=== PATIENT | female | born 1965 | race Caucasian/White ===

== ENCOUNTER → 2019-04-28 17:12 | Outpatient (CLI) | payer OTHER, SELFPAY | PROVIDERS: Visit Provider Nurse Practitioner | DX: N89.8 Other specified noninflammatory disorders of vagina (principal) | CPT/HCPCS: 87210 ==

== ENCOUNTER → 2021-02-28 13:43 | Outpatient (CLI) | payer OTHER, SELFPAY ==
[2021-02-28 14:35] LABS: Add Manual Diff / Slide Review NO; Basophils Absolute Auto 100 /uL (0-100); Basophils Percent Auto 1.2 % (0-2); Eosinophils Absolute Auto 100 /uL (0-450); Eosinophils Percent Auto 1.1 % (2-4); Hematocrit 38.6 % (36-46); Hemoglobin 12.9 g/dL (12.0-16.0); Lymphocytes Absolute Auto 1300 /uL (1100-4500); Lymphocytes Percent Auto 25.9 % (25-40); Mean Corpuscular HGB Conc 33.4 % (30-36); Mean Corpuscular Hemoglobin 29.5 PG (26-34); Mean Corpuscular Volume 88.3 fL (80-100); Monocytes Absolute Auto 400 /uL (0-900); Monocytes Percent Auto 8.2 % (3-14); Neutrophils Absolute Auto 3200 /uL (1500-7000); Neutrophils Percent Auto 63.6 % (50-75); Platelet Count 300 X10^3/uL (150-400); Red Blood Cell Count 4.37 X10^6/uL (4.0-5.2); White Blood Cell Count 5.1 X10^3/uL (4.5-11.0)
[2021-02-28 15:16] LABS: Alanine Aminotransferase 14 IU/L (<35); Albumin Globulin Ratio 1.1 (1.0-2.8); Alkaline Phosphatase 54 U/L (38-126); Aspartate Aminotransferase 28 IU/L (14-36); BUN Creatinine Ratio 19.7 (6-22); Blood Urea Nitrogen 12 mg/dL (7-17); Calcium 9.3 mg/dL (8.4-10.2); Carbon Dioxide 27 mmol/L (22-32); Chloride 105 mmol/L (98-107); Cholesterol 215 mg/dL (140-199); Estimated Glomerular Filt Rate > 60.0 mL/min (>60); Globulin 3.5 g/dL (1.7-4.1); Glucose 91 mg/dL (70-100); HDL Cholesterol 51 mg/dL (40-60); HEMOLYSIS < 15 (0-50); LDL Cholesterol Calculated 154 mg/dL (<100); Potassium 3.8 mmol/L (3.4-5.1); Sodium 138 mmol/L (137-145); Total Protein 7.5 g/dL (6.3-8.2); Triglycerides 50 mg/dL (35-150)
[2021-02-28 15:34] LABS: Free T4, Direct Thyroxine 1.36 ng/dL (0.78-2.19)
[2021-02-28 15:46] LABS: Vitamin D 25 Hydroxy (D3) 31.6 ng/mL (30.0-100.0)
[2021-02-28 15:47] LABS: Thyroid Stimulating Hormone 0.647 uIU/mL (0.47-4.68)
[2021-02-28 15:51] LABS: Ferritin 15 ng/mL (11-264)
[2021-02-28 16:05] LABS: Vitamin B12 458 pg/mL (239-931)
[2021-02-28 17:48] LABS: Cortisol Random 8.07 ug/dL
[2021-03-01 06:18] LABS: EBV Virus IgG Ab > 600.0 U/mL (0.0-17.9); EBV Virus IgM Ab < 36.0 U/mL (0.0-35.9)
[2021-03-01 08:36] LABS: Dehydroepiandrosterone Sulfate 31.9 ug/dL (29.4-220.5)
[2021-03-04 13:05] LABS: 18 kD IgG Band Absent (.); 23 kD IgG Band Absent (.); 28 kD IgG Band Absent (.); 30 kD IgG Band Absent (.); 39 kD IgG Band Absent (.); 41 kD IgG Bands Present (.); 45 kD IgG Band Absent (.); 58 kD IgG Band Absent (.); 66 kD IgG Band Absent (.); IgG P93 AB Absent (.); IgM P23 AB Absent (.); IgM P39 AB Present (.); IgM P41 AB Absent (.); Lyme IgG Line Blot Interpretat Negative (.); Lyme IgM Line Blot Interpretat Negative (.)
[2021-03-08 10:26] LABS: Percent Free Testosterone 3.23 % (0.50-2.80); Testosterone Free 0.48 ng/dL (0.10-0.85)
== END ==
PROVIDERS: Referring Provider Naturopath; Visit Provider Naturopath
DX: R53.83 Other fatigue (principal); N94.3 Premenstrual tension syndrome; K64.5 Perianal venous thrombosis; E67.3 Hypervitaminosis D; G44.209 Tension-type headache, unspecified, not intractable
CPT/HCPCS: 36415; 80053; 80061; 82306; 82533; 82607; 82627; 82728; 83516; 84402; 84403; 84439; 84443; 84481; 85025; 86617; 86644; 86645; 86664; 86665

== ENCOUNTER → 2021-11-30 11:44 | Outpatient (CLI) | payer OTHER, SELFPAY ==
[2021-11-30 13:33] LABS: Add Manual Diff / Slide Review NO; Basophils Absolute Auto 0 /uL (0-100); Basophils Percent Auto 0.5 % (0-2); Eosinophils Absolute Auto 0 /uL (0-450); Eosinophils Percent Auto 0.7 % (2-4); Hematocrit 38.8 % (36-46); Hemoglobin 13.2 g/dL (12.0-16.0); Lymphocytes Absolute Auto 1200 /uL (1100-4500); Lymphocytes Percent Auto 26.5 % (25-40); Mean Corpuscular Hemoglobin 30.5 PG (26-34); Mean Corpuscular Volume 89.7 fL (80-100); Monocytes Absolute Auto 400 /uL (0-900); Monocytes Percent Auto 7.8 % (3-14); Neutrophils Absolute Auto 3000 /uL (1500-7000); Neutrophils Percent Auto 64.5 % (50-75); Platelet Count 267 X10^3/uL (150-400); Red Blood Cell Count 4.33 X10^6/uL (4.0-5.2); Red Cell Distribution Width 12.8 % (11.6-14.8); White Blood Cell Count 4.6 X10^3/uL (4.5-11.0)
[2021-11-30 15:01] LABS: Alanine Aminotransferase 12 IU/L (<35); Albumin 4.2 g/dL (3.5-5.0); Albumin Globulin Ratio 1.4 (1.0-2.8); Alkaline Phosphatase 55 U/L (38-126); Aspartate Aminotransferase 23 IU/L (14-36); BUN Creatinine Ratio 14.1 (6-22); Bilirubin Total 2.9 mg/dL (0.2-1.3); Blood Urea Nitrogen 9 mg/dL (7-17); Calcium 8.8 mg/dL (8.4-10.2); Carbon Dioxide 30 mmol/L (22-32); Chloride 103 mmol/L (98-107); Estimated Glomerular Filt Rate > 60 mL/min (>60); Globulin 3.1 g/dL (1.7-4.1); Glucose 82 mg/dL (70-100); HEMOLYSIS < 15 (0-50); Potassium 3.8 mmol/L (3.4-5.1); Sodium 135 mmol/L (137-145); Total Protein 7.3 g/dL (6.3-8.2)
[2021-11-30 15:25] LABS: Free T3, Triiodothyronine Free 3.75 pg/mL (2.77-5.27); T4 Total Thyroxine 8.63 ug/dL (5.5-11.0)
[2021-11-30 15:30] LABS: Cortisol Random 6.06 ug/dL
[2021-11-30 15:34] LABS: Ferritin 25 ng/mL (11-264)
[2021-11-30 15:37] LABS: Thyroid Stimulating Hormone 0.919 uIU/mL (0.47-4.68)
[2021-11-30 15:50] LABS: Vitamin B12 > 1000 pg/mL (239-931)
[2021-11-30 16:02] LABS: Vitamin D 25 Hydroxy (D3) 76.3 ng/mL (30.0-100.0)
[2021-12-07 20:12] LABS: 18 kD IgG Band Absent (.); 23 kD IgG Band Absent (.); 28 kD IgG Band Absent (.); 30 kD IgG Band Absent (.); 39 kD IgG Band Absent (.); 41 kD IgG Bands Present (.); 45 kD IgG Band Absent (.); 58 kD IgG Band Absent (.); 66 kD IgG Band Absent (.); IgG P93 AB Absent (.); IgM P23 AB Absent (.); IgM P39 AB Absent (.); IgM P41 AB Absent (.); Lyme IgG Line Blot Interpretat Negative (.); Lyme IgM Line Blot Interpretat Negative (.)
[2021-12-20 13:40] LABS: Epstein-Barr Anti-Diffuse <9.0
== END ==
PROVIDERS: PCP Naturopath; Referring Provider Naturopath; Visit Provider Naturopath
DX: R53.83 Other fatigue (principal); E53.8 Deficiency of other specified B group vitamins; E61.1 Iron deficiency; B27.90 Infectious mononucleosis, unspecified without complication
CPT/HCPCS: 36415; 80053; 82306; 82533; 82607; 82627; 82728; 84403; 84436; 84443; 84481; 85025; 86003; 86617; 86645; 86663

== ENCOUNTER → 2022-05-24 15:20 | Outpatient (CLI) | payer OTHER, SELFPAY ==
--- NOTE | 2022-05-24 15:22 | DI.US.S_ITS ---
PROCEDURE: US PELVIC COMPLETE INDICATIONS: ABNORMAL BLEEDING TECHNIQUE: Real-time scanning was performed of the pelvic organs, with image documentation. Additional endovaginal scanning was necessary due to incomplete visualization of the adnexal and endometrial structures by transabdominal scanning. COMPARISON: None. FINDINGS: There is suspected bicornuate uterus. The lateral transverse with the uterus is approximately 9.8 centimeters. The length of the uterus when measured to the right fundal horn measures 11 centimeters and when measured to the left fundal horn measures 8.4 centimeters. The uterus measures approximately 5.5 centimeters in AP dimension. Abnormally thickened endometrium measuring up to 13 millimeters in double-layer thickness, and heterogeneous appearance containing numerous calcifications. Right midline intramuscular uterine fibroid measuring 4.5 x 6.2 x 5.2 centimeters. Additional left anterior intramuscular uterine fibroid measuring 2.0 x 1.6 x 1.9 centimeters. Right ovary measures 4.0 x 4.6 x 6.4 centimeters. Cyst in the right ovary measures 6.0 x 4.3 x 3.8 centimeters and contains a small daughter cyst measuring up to 2.3 centimeters. Left ovary unremarkable measuring 1.3 x 1.5 x 3.2 centimeters. Both ovaries demonstrate normal arterial and venous Doppler flow. IMPRESSION: Thickened and heterogenous endometrium containing calcifications. Findings are suspicious for endometrial carcinoma, although this is not definitive. Endometrial biopsy recommended. 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 The size of the uterus and fibroids along with the suspected bicornuate morphology of the uterus greatly limits sonographic utility. Consider MRI for further evaluation. No findings of ovarian torsion. Approximate 6 centimeter right ovarian/adnexal cyst without features of complexity. We strive to produce accurate, complete, and clear reports of imaging services. To assist us in improving patient care, this report was composed using standard report templates and voice recognition software. Therefore, it may contain abnormal punctuation, insertions and/or omissions. Occasional wrong-word or sound-alike substitutions may occur. Though we review the report and make efforts to correct it, we do recommend that the report be read carefully in proper context to recognize any text inaccuracies. Dictated by: Erwin Ching M.D. on 05/24/2022 at 16:46 Approved by: Erwin Ching M.D. on 05/24/2022 at 16:52
== END ==
PROVIDERS: PCP Physician Assistant; Referring Provider Physician Assistant; Visit Provider Physician Assistant
DX: N93.9 Abnormal uterine and vaginal bleeding, unspecified (principal); R93.89 Abnormal findings on diagnostic imaging of other specified body structures; D25.9 Leiomyoma of uterus, unspecified; N83.201 Unspecified ovarian cyst, right side; N85.2 Hypertrophy of uterus
CPT/HCPCS: 76830; 76856

== ENCOUNTER 2022-06-09 08:39 | Day surgery (SDC) | payer OTHER, SELFPAY ==
[2022-06-06 14:43] VITALS: BMI 21.2
[2022-06-09] VITALS (7 sets, daily range): BP systolic 117–130; BP diastolic 51–89; PULSE 43–66; RESP 13–18; TEMP 36.2–36.9; O2SAT 96–100; BMI 21.2
--- NOTE | 2022-06-09 | PATH_ITS ---
[facility] Accession Number: [id number] . 01 Material submitted: . PART A: endocervix - ENDOCERVICAL CURETTINGS PART B: endometrium - ENDOMETRIAL CURETTINGS . 01 Diagnosis: A. Endocervix, Curettage: Endocervical mucosa with extensive squamous metaplasia and reactive changes. No evidence of dysplasia or malignancy. . B. Endometrium, Curettage: Complex hyperplasia without atypia. Background late secretory phase with eosinophilic/tubal metaplasia and reactive surface/reparative changes, polyp features, and breakdown. Fragments of benign endocervical mucosa with extensive squamous metaplasia. Negative for atypical hyperplasia and invasive malignancy. MRV 06/19/2022 1724 Local . 01 Comment: Dr. Marie Corral reviewed parts A and B and concurs with the interpretation. . 01 Electronically signed: . Shanta Camacho MD, Pathologist NPI- [id number] . 01 Gross description: . Part A: ENDOCERVICAL CURETTINGS: Received in formalin are minute fragments of mucoid and hemorrhagic material measuring 2.2 x 1.3 x 0.1 cm in aggregate. Submitted in toto in 1 cassette. Part B: ENDOMETRIAL CURETTINGS: Received in formalin are minute fragments of mucoid and hemorrhagic material measuring 2.8 x 1.7 x 0.2 cm in aggregate. Submitted in toto in 1 cassette. /CPE 06/10/2022 1006 Local . 01 Pathologist provided ICD-10: N85.00 . 01 CPT . 695084, [id number] Specimen Comment: A courtesy copy of this report has been sent to [phone] Performed at: 01 [facility] [address] [place] [address], [place], [place] [id number] MD Luis Armando Zeng MD Phone: [phone]
--- NOTE | 2022-06-09 07:52 | PM.PREOP ---
Pre-operative Note COVID-19 COVID-19 status: Negative Result date/Date tested (Pos, Neg/Pending): 06/09/22 Criteria for continued procedure: Non-surgical alternatives not available or appropriate per current SOC Interval Note History & Physical reviewed/Exam performed by Physician: Yes Changes to H&P: No
[2022-06-09 09:10] LABS: COVID19 -Nasal RAPID Negative (Negative)
[2022-06-09] MEDS: LACTATED RINGERS 1,000 ML 42 ML IV (09:11)
--- NOTE | 2022-06-09 11:08 | SUR.OPER ---
Lithotomy on padded OR bed, head on pillow, arms secured on padded arm boards at <90 degrees abduction. Legs secured in padded yellow fins stirrups.
--- NOTE | 2022-06-09 11:26 | P.OP_ITS ---
Operative Date/Time/Diagnoses Date of procedure: 06/09/22 Time of procedure: 10:40 Pre-op diagnosis: Post menopausal bleeding Thickened endometrium on ultrasound Post-op diagnosis: same Procedure & Clinicians Procedure: Procedures Operation Date: 06/09/22 10:15 Actual Procedure Side Surgeon p Hysteroscopy w/ dilation and curettage of the uterus Nestor Leggett MD Indications: Carri is a 57-year-old A4, LNMP proximally age 12 months ago who presents for evaluation of her dysfunctional uterine bleeding and review of recent ultrasound.? Patient's menses began at age 14 she is had regular predictable periods throughout her reproductive life up until about a year ago.? At that time she had 2 or 3 months of amenorrhea followed by a couple months of regular periods and subsequently irregular episodes of bleeding with clotting, bright red blood, and severe cramping over the last several months.? Recent pelvic ultrasound performed on 05/24/2022 shows: PROCEDURE:? US PELVIC COMPLETE ? INDICATIONS:? ABNORMAL BLEEDING ? TECHNIQUE:? Real-time scanning was performed of the pelvic organs, with image documentat ion.? Additional endovaginal scanning was necessary due to incomplete visualization of the adnexal and endometrial structures by transabdominal scanning.? ? COMPARISON:? None. ? FINDINGS:? ? There is suspected bicornuate uterus.? The lateral transverse with the uterus is approximately 9.8 centimeters.? The length of the uterus when measured to the right fundal horn measures 11 centimeters and when measured to the left fundal horn measures 8.4 centimeters.? The uterus measures approximately 5.5 centimeters in AP dimension. ? Abnormally thickened endometrium measuring up to 13 millimeters in double-layer thickness, and heterogeneous appearance containing numerous calcifications. ? Right midline intramuscular uterine fibroid measuring 4.5 x 6.2 x 5.2 centimeters.? Additional left anterior intramuscular uterine fibroid measuring 2.0 x 1.6 x 1.9 centimeters. ? Right ovary measures 4.0 x 4.6 x 6.4 centimeters.? Cyst in the right ovary measures 6.0 x 4.3 x 3.8 centimeters and contains a small daughter cyst measuring up to 2.3 centimeters. ? Left ovary unremarkable measuring 1.3 x 1.5 x 3.2 centimeters. ? Both ovaries demonstrate normal arterial and venous Doppler flow.? ? ? IMPRESSION: ? Thickened and heterogenous endometrium containing calcifications.? Findings are suspicious for endometrial carcinoma, although this is not definitive.? Endometrial biopsy recommended. ? 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 The size of the uterus and fibroids along with the suspected bicornuate morphology of the uterus greatly limits sonographic utility.? Consider MRI for further evaluation. ? No findings of ovarian torsion.? Approximate 6 centimeter right ovarian/adnexal cyst without features of complexity. Patient's review of systems is positive for intermenstrual spotting but she denies vasomotor symptoms, vaginal dryness, or mood changes.? Patient's most recent Pap was normal 1 year ago but she has a history approximately 10-15 years ago being diagnosed with HPV.? Her cervical changes at that time did not require treatment and her recent Pap smears have all been clear of HPV. Unfortunately cervical stenosis prevented endometrial sampling in the office and therefore the patient is scheduled hysteroscopy with dilation and curettage of the uterus. She presents today her scheduled surgery. Surgeon: Nestor Leggett Anesthesia Type: General Operative Notes Findings: Bimanual examination shows the uterus to be enlarged and lobulated consistent with a bicornuate uterus with intramural myomas. Aggregate size of the uterus is approximately 8 weeks. The endometrial cavity does have a slight bicornuate character but is otherwise unremarkable. The endometrium is shaggy throughout the cavity of the uterus and somewhat hemorrhagic. There do not appear to be any focal endometrial or sub mucous lesions within the endometrial cavity. Closure Type: not applicable Specimen(s): endometrial curettings and other (Endocervical curettings) Estimated blood loss (mL): 15 Blood products transfused: none Procedure in detail: With the patient under satisfactory general anesthesia modified dorsal lithotomy position, the perineum, vagina, lower abdomen were prepped and draped in the usual manner for hysteroscopy/dilation and curettage. A pre-surgical safety time-out was then taken in accordance with [facility] OR protocols. Following bimanual examination under anesthesia, a bivalve speculum was then inserted in the vagina and the cervix visualized. The anterior lip of the cervix was then grasped with a single-tooth tenaculum and the endocervical canal slowly dilated with Hegar dilators up to 7 mm. The hysteroscope was then introduced into the endometrial cavity using saline as a distention medium and the cavity thoroughly inspected with the findings as noted above. Absent any focal lesions, no hysteroscopic biopsies were taken and the hysteroscope was removed from the endometrial cavity. Endocervical curettage was then performed with a Kofiian box curette and an ECC specimen was submitted in formalin for pathologic evaluation. Sharp curettage was then accomplished in the usual manner with moderate amounts of curettings obtained and submitted in formalin for pathologic evaluation. At this point the operation was terminated by r emoval of the tenaculum from the cervix. No bleeding was noted from either puncture site. The speculum was then removed from the vagina and the patient awakened from anesthesia. She was then transferred to the PACU for a period of observation and recovery after having tolerated the procedure well. Complications: none Post-operative Condition: stable Disposition: PACU Plan for aftercare: Routine postoperative care. Patient to be contacted with results as soon as available and follow-up/further decision making will be based on those findings.
== END 2022-06-09 12:15 | disposition home or self-care (01) ==
PROVIDERS: PCP Physician Assistant; Referring Provider Obstetrics & Gynecology; Visit Provider Obstetrics & Gynecology
PROC: 0UDB8ZZ Extraction of Endometrium, Via Natural or Artificial Opening Endoscopic (ICD-10-PCS; CPT 58558; principal; 2022-06-09 10:15)
DX: N95.0 Postmenopausal bleeding (principal); D25.9 Leiomyoma of uterus, unspecified; R93.89 Abnormal findings on diagnostic imaging of other specified body structures; Z20.822 Contact with and (suspected) exposure to COVID-19; N87.9 Dysplasia of cervix uteri, unspecified
CPT/HCPCS: 58558; 83001; 87635; C9803; J1885; J2250; J2405; J2704; J3010

== ENCOUNTER → 2022-08-31 12:06 | Outpatient (CLI) | payer OTHER, SELFPAY ==
[2022-08-31 13:22] LABS: Add Manual Diff / Slide Review NO; Basophils Absolute Auto 0 /uL (0-100); Basophils Percent Auto 1.3 % (0-2); Eosinophils Absolute Auto 100 /uL (0-450); Hematocrit 39.8 % (36-46); Hemoglobin 13.3 g/dL (12.0-16.0); Lymphocytes Absolute Auto 1300 /uL (1100-4500); Lymphocytes Percent Auto 35.4 % (25-40); Mean Corpuscular HGB Conc 33.5 % (30-36); Mean Corpuscular Volume 89.7 fL (80-100); Monocytes Absolute Auto 300 /uL (0-900); Monocytes Percent Auto 8.9 % (3-14); Neutrophils Absolute Auto 1900 /uL (1500-7000); Neutrophils Percent Auto 51.4 % (50-75); Platelet Count 305 X10^3/uL (150-400); Red Blood Cell Count 4.43 X10^6/uL (4.0-5.2); Red Cell Distribution Width 12.6 % (11.6-14.8); White Blood Cell Count 3.7 X10^3/uL (4.5-11.0)
[2022-08-31 14:23] LABS: Free T3, Triiodothyronine Free 3.63 pg/mL (2.77-5.27); Free T4, Direct Thyroxine 1.24 ng/dL (0.78-2.19)
[2022-08-31 14:35] LABS: Cortisol Random 8.83 ug/dL
[2022-08-31 14:39] LABS: Ferritin 36 ng/mL (11-264)
[2022-08-31 14:55] LABS: Vitamin B12 > 1000 pg/mL (239-931)
[2022-08-31 15:35] LABS: Vitamin D 25 Hydroxy (D3) 74.4 ng/mL (30.0-100.0)
[2022-09-02 08:26] LABS: Dehydroepiandrosterone Sulfate 42.2 ug/dL (29.4-220.5)
[2022-09-11 13:17] LABS: Epstein-Barr Anti R/D >600.0; Epstein-Barr Anti-Diffuse <9.0
== END ==
PROVIDERS: PCP Naturopath; Referring Provider Naturopath; Visit Provider Naturopath
DX: R53.83 Other fatigue (principal); E53.8 Deficiency of other specified B group vitamins; E61.1 Iron deficiency; B27.90 Infectious mononucleosis, unspecified without complication; M25.50 Pain in unspecified joint
CPT/HCPCS: 36415; 82306; 82533; 82607; 82627; 82728; 83520; 84439; 84443; 84481; 85025; 86628; 86644; 86645; 86663

== ENCOUNTER → 2023-06-25 15:11 | Outpatient (CLI) | payer OTHER, SELFPAY ==
--- NOTE | 2023-06-25 15:14 | DI.US.S_ITS ---
PROCEDURE: US PELVIC COMPLETE INDICATIONS: Menopausal and female climacteric states TECHNIQUE: Real-time scanning was performed of the pelvic organs, with image documentation. Additional endovaginal scanning was necessary due to incomplete visualization of the adnexal and endometrial structures by transabdominal scanning. COMPARISON: [facility], US, US PELVIC COMPLETE, 05/24/2022, 15:36. FINDINGS: Uterus: Uterus is retroverted and mildly enlarged measuring 7.9 x 7.0 x 4.6 cm. The myometrium is heterogeneous. The endometrium measures 1.8 mm combined thickness. There are multiple ureter and fibroids visualized including right posterior subserosal/intramural fibroid measuring up to 6.5 cm, previously 6.2 cm. Left intramural fibroid measuring up to 2.0 cm, previously 1.9 cm. Additional right intramural fibroid measuring 1.8 cm, new since prior ultrasound. Ovaries: The right ovary is not well visualized. The left ovary measures 3.7 x 1.7 x 1.3 cm, with a calculated ovarian volume of 4.3 cc. The left ovary has a normal sonographic appearance. No left adnexal mass is visualized. Other: No pathologic free abdominal or pelvic fluid. IMPRESSION: Multiple uterine fibroids. Normal left ovary. Right ovary is not well visualized. We strive to produce accurate, complete, and clear reports of imaging services. To assist us in improving patient care, this report was composed using standard report templates and voice recognition software. Therefore, it may contain abnormal punctuation, insertions and/or omissions. Occasional wrong-word or sound-alike substitutions may occur. Though we review the report and make efforts to correct it, we do recommend that the report be read carefully in proper context to recognize any text inaccuracies. Dictated by: Merle Padron M.D. on 06/25/2023 at 17:38 Approved by: Merle Padron M.D. on 06/25/2023 at 17:43
== END ==
PROVIDERS: PCP Naturopath; Referring Provider Naturopath; Visit Provider Naturopath
DX: N95.1 Menopausal and female climacteric states (principal); N85.00 Endometrial hyperplasia, unspecified; D25.1 Intramural leiomyoma of uterus; D25.2 Subserosal leiomyoma of uterus
CPT/HCPCS: 76830; 76856

== ENCOUNTER → 2024-12-22 13:13 | Outpatient (CLI) | payer BC, SELFPAY ==
--- NOTE | 2024-12-22 13:16 | DI.MG.S_ITS ---
MM screening mammo BI: 12/22/2024. BI-RADS: 1 CLINICAL: 59-year old female for bilateral screening mammogram. Tyrer-Cuzick lifetime risk of 8.7%. No personal or first-degree family history of breast cancer. PRIOR EXAMS: 03/07/23, 05/03/21. MAMMOGRAPHY TECHNIQUE: 2D and 3D (tomosynthesis) digital mammographic views obtained, with additional images as needed for full coverage. Current study was also evaluated with a Computer Aided Detection (CAD) system. DENSITY C. The breasts are heterogeneously dense, which may obscure small masses. MAMMOGRAPHY FINDINGS Bilateral: No suspicious mass, asymmetry, microcalcification, or other abnormality seen. IMPRESSION: * No evidence of malignancy. RECOMMENDATIONS Bilateral * Annual screening mammography. OVERALL ASSESSMENT CATEGORY BI-RADS-1: Negative. The [employer] recommends annual screening mammography beginning at age 40 for women with average risk of breast cancer. ELECTRONICALLY SIGNED: Scott Ford M.D. on 12/22/2024 at 03:49:29 PM PT Interpreting Station ID: [id number]
== END ==
PROVIDERS: PCP Naturopath; Referring Provider Naturopath; Visit Provider Naturopath
DX: Z12.31 Encounter for screening mammogram for malignant neoplasm of breast (principal); R92.333 Mammographic heterogeneous density, bilateral breasts
CPT/HCPCS: 77063; 77067

== ENCOUNTER 2025-05-16 13:42 | Emergency (ER) | payer BC, SELFPAY ==
[2025-05-16] VITALS (21 sets, daily range): BP systolic 101–162; BP diastolic 57–78; PULSE 46–63; RESP 17–38; TEMP 36.6; O2SAT 94–100; BMI 20.7
--- NOTE | 2025-05-16 13:50 | DI.RAD.S_ITS ---
PROCEDURE: XR CHEST 1V INDICATIONS: Chest Pain TECHNIQUE: One view of the chest was acquired. COMPARISON: None. FINDINGS: Surgical changes and devices: None. Lungs and pleura: Lungs are clear. No pleural effusions or pneumothorax. Mediastinum: Mediastinal contours appear normal. Heart size is normal. Bones and chest wall: No suspicious bony lesions. Overlying soft tissues appear unremarkable. IMPRESSION: No acute cardiopulmonary abnormality is seen. Dictated by: El Harper M.D. on 05/16/2025 at 14:48 Approved by: El Harper M.D. on 05/16/2025 at 14:49
--- NOTE | 2025-05-16 13:51 | EKG_ITS ---
[address] [address] Test Date: 2025-05-16 Pat Name: Carri Taylor Department: Room: Gender: Female Projection Printer: ALEX : [id number] Requested By: Order Number: [id number] Reading MD: Arisitdes Melton MD Measurements Intervals Ferguson Rate: 52 P: 83 GA: 138 QRS: 82 QRSD: 100 T: 61 QT: 442 QTc: 411 Interpretive Statements Sinus bradycardia Incomplete right bundle branch block NO PRIOR TRACING Electronically Signed On 05-17-2025 7:56:05 PDT by Aristides Melton MD
[2025-05-16] MEDS: ASPIRIN 81 MG CHEW TAB 324 MG PO (14:07)
[2025-05-16 14:18] LABS: Add Manual Diff / Slide Review NO; Hematocrit 41.5 % (36-46); Hemoglobin 14.0 g/dL (12.0-16.0); Lymphocytes Absolute Auto 1300 /uL (1100-4500); Mean Corpuscular HGB Conc 33.8 % (30-36); Mean Corpuscular Hemoglobin 29.6 PG (26-34); Mean Corpuscular Volume 87.5 fL (80-100); Platelet Count 310 X10^3/uL (150-400)
[2025-05-16 14:21] LABS: INR 1.0 (0.9-1.3); Prothrombin Time 11.7 SECONDS (9.4-12.5)
[2025-05-16 14:23] LABS: PTT Partial Thromboplastin Tim 32 SECONDS (25.1-36.5)
[2025-05-16 14:27] LABS: Alanine Aminotransferase 16 IU/L (<35); Albumin 4.6 g/dL (3.5-5.0); Albumin Globulin Ratio 1.2 (1.0-2.8); Alkaline Phosphatase 60 U/L (38-126); Blood Urea Nitrogen 18 mg/dL (7-17); Calcium 9.2 mg/dL (8.4-10.2); Carbon Dioxide 25 mmol/L (22-32); Chloride 104 mmol/L (98-107); Creatine Kinase 40 U/L (30-135); Estimated Glomerular Filt Rate > 60 mL/min (>60); Globulin 3.7 g/dL (1.7-4.1); Glucose 90 mg/dL (70-99); HEMOLYSIS < 15 (0-50); Lipase 80 U/L (23-300); Magnesium 2.0 mg/dL (1.6-2.3); Potassium 3.6 mmol/L (3.4-5.1); Sodium 137 mmol/L (137-145); Total Protein 8.3 g/dL (6.3-8.2)
[2025-05-16 14:38] LABS: NT-proBNP (BNP-Adult 18+) 42 pg/mL (<125); Troponin I < 0.012 ng/mL (0.01-0.034)
[2025-05-16 16:43] LABS: Troponin I < 0.012 ng/mL (0.01-0.034)
--- NOTE | 2025-05-16 19:44 | ED.CHESTPAIN ---
HPI - Chest Pain General Chief Complaint: Chest Pain Stated Complaint: SOB, dizziness, and tightness in chest Time Seen by Provider: 05/16/25 19:32 Source: patient Mode of arrival: Ambulatory History of Present Illness HPI narrative: [age] year old female with no cardiac history presents with exertional angina feels like pressure in the center of her chest for the past 2 months that has worsened. Currently the patient is asymptomatic at rest. Related Data Previous Rx's ?Medication ?Instructions ?Recorded norethindrone acetate 5 mg tablet 5 mg PO DAILY #30 tabs 09/13/22 Allergies Allergy/AdvReac Type Severity Reaction Status Date / Time No Known Drug Allergies Allergy Verified 05/16/25 13:52 Review of Systems Review of Systems ROS Unobtainable: All systems reviewed & are unremarkable except as noted in HPI and below Patient History Medical History (Updated 05/16/25 @ 21:14 by Rodriguez Stoll MD) Scoliosis Chronic back pain Anemia Painful menstrual periods Irregular menstrual cycle (~2017) Surgical History (Updated 05/13/22 @ 21:35 by Bernadine Figueredo) History of tonsillectomy and adenoidectomy (~1969) Family History (Updated 05/13/22 @ 21:37 by Bernadine Figueredo) Father Cancer Mother Cancer Grandfather Stroke Grandfather Stroke Grandmother Lung disease Social History household members: none Smoking Status: Never smoker Smoking Status: Never smoker alcohol intake frequency: holidays/special occasions only Exam Narrative Exam Narrative: General: Patient appears to be in no acute distress, acting appropriately Head: normocephalic, atraumatic, HEENT: Pupils equal round reactive, eyes tracking well, neck supple, no JVD Heart: regular rate and rhythm, no murmurs, rubs, or gallops heard Lungs: clear to auscultation, no adventitious sounds Abdomen: soft , nontender, nondistended, positive bowel sounds Neurological: no focal neurological signs, moving all extremities well, alert and oriented x3, Psych: good judgment ,good insight, mood is normal. Initial Vital Signs Initial Vital Signs: Vital Signs Blood Pressure 162/78 H 05/16/25 13:49 Scores HEART Score Heart Score history: Slightly Suspicious Heart Score EKG: Normal Heart Score Age: 45-64 years old Heart Score risk factors: No known risk factors Heart Score troponin: < or = to normal limit Heart Score Total: 1 Course Orders Ordered: ED Orders 05/16/25 20:15 D Dimer Stat Discontinued Medications Aspirin (Aspirin 81 Mg Chew Tab) 324 mg PO NOW ONE Stop: 05/16/25 13:51 Last Admin: 05/16/25 14:07 Dose: 324 mg Documented By: KAMILAH Reevaluation(s) Reevaluation #1: Upon re-evaluation, patient's D-dimer is negative and she continues to remain asymptomatic in bed. Time: 21:10 Consultations Consultation #1: Dr ace cardiology was consulted who said that based on her heart score and her cardiac risk factors, patient can be seen as an outpatient and have a stress test done done. Vital Signs Vital signs: Vital Signs - 8 hr 05/16/25 21:00 05/16/25 21:00 Pulse Rate 46 L Respiratory Rate 20 Blood Pressure 116/59 L Pulse Oximetry 96 Oxygen Delivery Method Room Air MDM - Chest Pain Lab Data 05/16/25 14:07 05/16/25 14:07 Labs: Lab Results 05/16/25 05/16/25 05/16/25 Range/Units 14:07 16:05 20:15 WBC 5.9 (4.5-11.0) X10^3/uL RBC 4.74 (4.0-5.2) X10^6/uL Hgb 14.0 (12.0-16.0) g/dL Hct 41.5 (36-46) % MCV 87.5 (80-100) fL MCH 29.6 (26-34) PG MCHC 33.8 (30-36) % RDW 13.5 (11.6-14.8) % Plt Count 310 (150-400) X10^3/uL Neut % (Auto) 68.8 (50-75) % Lymph % (Auto) 22.5 L (25-40) % [place] % (Auto) 7.1 (3-14) % Eos % (Auto) 1.1 L (2-4) % Baso % (Auto) 0.5 (0-2) % Neut # (Auto) 4100 (3475-8057) /uL Lymph # (Auto) 1300 (8474-1637) /uL [place] # (Auto) 400 (0-900) /uL Eos # (Auto) 100 (0-450) /uL Baso # (Auto) 0 (0-100) /uL PT 11.7 (9.4-12.5) SECONDS INR 1.0 (0.9-1.3) APTT 32 (25.1-36.5) SECONDS D-Dimer 286 (<500) ng/ml Sodium 137 (137-145) mmol/L Potassium 3.6 (3.4-5.1) mmol/L Chloride 104 (98-107) mmol/L Carbon Dioxide 25 (22-32) mmol/L BUN 18 H (7-17) mg/dL Creatinine 0.69 (0.52-1.04) mg/dL Estimated GFR > 60 (>60) mL/min BUN/Creatinine Ratio 26.1 H (6-22) Glucose 90 (70-99) mg/dL Calcium 9.2 (8.4-10.2) mg/dL Magnesium 2.0 (1.6-2.3) mg/dL Total Bilirubin 3.3 H (0.2-1.3) mg/dL AST 29 (14-36) IU/L ALT 16 (<35) IU/L Alkaline Phosphatase 60 (38-126) U/L Total Creatine Kinase 40 (30-135) U/L Troponin I < 0.012 < 0.012 (0.01-0.034) ng/mL NT-Pro-B Natriuret Pep 42 (<125) pg/mL Total Protein 8.3 H (6.3-8.2) g/dL Albumin 4.6 (3.5-5.0) g/dL Globulin 3.7 (1.7-4.1) g/dL Albumin/Globulin Ratio 1.2 (1.0-2.8) Lipase 80 (23-300) U/L MDM Narrative Medical decision making narrative: 60-year-old female with no known cardiac risk factors presents with exertional angina. Her workup is negative. Cardiac score is 1. After consultation with Cardiology, it was determined that the patient can follow up with Cardiology as an outpatient for further evaluation. Discharge Plan Departure Patient Disposition: Home Clinical Impression: Chest pain Qualifiers: Chest pain type: unspecified Qualified Code(s): R07.9 - Chest pain, unspecified Instructions: DI for Chest Pain Activity Restrictions/Additional Instructions: Advised to follow up with Cardiology for an outpatient stress test. Come sooner if symptoms worsen. Prescriptions: No Action norethindrone acetate 5 mg tablet 5 mg PO DAILY Qty: 30 12RF Referrals: Greg Ace MD [Physician, Cardiology] Kiana Huizar MD [Primary Care Provider, Family Practice] Stand Alone Forms: Patient Portal/API
--- NOTE | 2025-05-16 20:25 | PC.NURSE ---
Pt sitting in ED stretcher watching phone at this time. Engages appropriately with RN upon entering exam room. States increasing SOB and chest tightness with exertion over last couple of months getting worse. States today was doing nothing of note when symptoms started. Denies any symptoms at t his time. Continued plan of care discussed with patient. Pt ambulatory to restroom without difficulty or assistance. Connected back to cardiac, blood pressure, pulse ox, and resp monitors with alarms on and audible. Blood drawn from IV at this time. Call light within reach. No further requests or complaints at this time.
== END 2025-05-16 21:25 | disposition home or self-care (01) ==
PROVIDERS: Emergency Medicine; Emergency Provider Family Medicine; PCP Family Medicine
DX: R07.9 Chest pain, unspecified (principal)
CPT/HCPCS: 36415; 71045; 80053; 82550; 83690; 83735; 83880; 84484; 85025; 85379; 85610; 85730; 93005; 93010; 99284